=== PATIENT | female | born 1950 | race Caucasian/White ===

== ENCOUNTER 2017-04-12 21:36 | Inpatient (IN) | payer BC ==
--- NOTE | 2017-04-12 22:12 | EDM.PDOC ---
ED HPI GENERAL MEDICAL PROBLEM - General Chief Complaint: Abdominal Pain Stated Complaint: ABDOMINAL PAIN VOMITING Time Seen by Provider: 04/12/17 22:10 Source of Information: Reports: Patient History Limitations: Reports: No Limitations - History of Present Illness INITIAL COMMENTS - FREE TEXT/NARRATIVE: 67-year-old female presents to the ED with complaints of diffuse lower abdominal pain with strong colicky component. She states symptoms were mildly apparent when she got up this morning and have worsened as the day has gone on. She had some concerns that she may have contracted food poisoning as she was eating out the last few days. She did a [employer] restaurant last night and had an omelette earlier this morning after scientology. As the day has gone on she is developed increasing lower abdominal pain that radiates slightly into her lower back. She states there is a colicky component to the pain which makes her nauseated and vomit. She's vomited bilious emesis 3. She feels the need to defecate but has no had no luck in terms of getting her bowels to work. She has been sitting on the toilet voiding intermittently as well to try and relieve the lower abdominal pain. Previous surgery of the abdomen is total bili hysterectomy with retention of the ovaries. She has had a total knee replacement. It hurts to walk. She also felt tingling in the car caused increased lower abdominal pain as well. Onset: Today Onset Date: 04/12/17 Onset Time: 10:00 Duration: Hour(s): Location: Reports: Abdomen (Pain is all infraumbilical felt mostly suprapubic and right lower quadrant. It hurts to walk) Quality: Reports: Ache, Sharp, Stabbing, Other (Strong intermittent colicky pain but otherwise pain is constant suprapubically and right lower quadrant of the abdomen.) Severity: Moderate Improves with: Reports: Rest Worsens with: Reports: Movement Context: Denies: Activity, Exercise, Lifting, Sick Contact, Trauma, Other Associated Symptoms: Reports: Fever/Chills, Loss of Appetite, Malaise, Nausea/ Vomiting (Has vomited bilious emesis 3.), Other (Bowels have not work today but were normal yesterday.). Denies: No Other Symptoms, Confusion, Chest Pain, Cough, cough w sputum, Diaphoresis, Headaches (Has had some chills not aware of any fever per se), Rash, Seizure, Shortness of Breath Treatments WEB MARKETING ANALYST: Reports: Other (see below) Other Treatments WEB MARKETING ANALYST: kaveh sseltzer relief Lower Abdomen Pain Score (Numeric/FACES): 10 - Related Data Allergies Allergy/AdvReac Type Severity Reaction Status Date / Time No Known Allergies Allergy Verified 04/12/17 21:59 Home Meds: Home Meds Aspirin [Halfprin] 81 mg PO BEDTIME 04/12/17 [History] atorvaSTATin [Lipitor] 0 mg PO DAILY 04/12/17 [History] Past Medical History Cardiovascular History: Reports: High Cholesterol - Past Surgical History Female Surgical History: Reports: Hysterectomy Musculoskeletal Surgical History: Reports: Knee Replacement Other Musculoskeletal Surgeries/Procedures:: left and right Social & Family History - Tobacco Use Smoking Status *Q: Never Smoker - Caffeine Use Caffeine Use: Reports: Coffee - Recreational Drug Use Recreational Drug Use: No - Living Situation & Occupation Living situation: Reports: Occupation: Employed ED ROS GENERAL - Review of Systems Review Of Systems: See Below Constitutional: Reports: Weakness, Decreased Appetite. Denies: Fever, Chills, Malaise, Fatigue, Weight Loss HEENT: Reports: No Symptoms Respiratory: Reports: No Symptoms Cardiovascular: Reports: No Symptoms Endocrine: Reports: No Symptoms GI/Abdominal: Reports: Abdominal Pain (See history of present illness), Nausea, Vomiting (This evening.) : Reports: No Symptoms Musculoskeletal: Reports: Back Pain (Some mild low back pain which starts in this lower abdomen.) Skin: Reports: No Symptoms Neurological: Reports: No Symptoms Psychiatric: Reports: No Symptoms ED EXAM, GI/ABD - Physical Exam Exam: See Below Exam Limited By: No Limitations General Appearance: Alert, WD/WN, Moderate Distress, Other Eyes: Bilateral: Normal Appearance Throat/Mouth: Normal Inspection, Normal Lips, Normal Oropharynx, Other (Tongue is mildly dry.) Neck: Normal Inspection, Supple, Non-Tender, Full Range of Motion. No: Lymphadenopathy (L), Lymphadenopathy (R) Respiratory/Chest: Lungs Clear, Normal Breath Sounds, Chest Non-Tender, Respiratory Distress (Mild tachypnea) Cardiovascular: Normal Peripheral Pulses, Regular Rate, Rhythm, No Edema, No Gallop, No Murmur GI/Abdominal Exam: Normal Bowel Sounds, Guarding ( She has a positive Rovsing sign and obturator sign.), Rebound (Suprapubically and right lower quadrant.), Tender (Very tender to palpation suprapubically and right lower quadrant localized to McBurney's point.) Back Exam: Normal Inspection, Full Range of Motion. No: CVA Tenderness (L), CVA Tenderness (R) Extremities: Normal Inspection, Normal Range of Motion, Non-Tender, No Pedal Edema Neurological: Alert, Oriented, CN II-XII Intact, Normal Cognition Psychiatric: Normal Affect, Normal Mood Skin Exam: Warm, Dry, Intact, Pallor (Mild pallor thompson in color. Appears ill.) EKG INTERPRETATION EKG Date: 04/12/17 Time: 23:35 Rhythm: NSR Rate (Beats/Min): 70 [place]: LAD-Left [place] Deviation (-44) P-Wave: Present QRS: Other (RSR prime in V1 normal variant. There are Q waves however in lead 3 and aVF consider possible old inferior wall myocardial infarction) ST-T: Normal QT: Prolonged (QT is moderately prolonged.) EKG Interpretation Comments: Abnormal ECG Course - Vital Signs Last Recorded V/S: Last Vital Signs Temp 36.2 C 04/12/17 21:54 Pulse 69 04/13/17 00:46 Resp 20 04/13/17 01:14 BP 132/82 04/13/17 00:46 Pulse Ox 100 04/13/17 01:14 - Orders/Labs/Meds Orders: Active Orders 24 hr Category Date Time Status EKG Documentation Completion [RC] STAT Care 04/12/17 22:57 Active Verify Patient Consent Obtain [RC] ASDIRECTED Care 04/13/17 00:38 Active Abdomen 1V Flat [CR] Stat Exams 04/12/17 22:11 Taken Abdomen Pelvis wo Cont [CT] Stat Exams 04/12/17 22:51 Taken Chest 1V Frontal [CR] Stat Exams 04/12/17 22:56 Taken Sodium Chloride 0.9% [Normal Saline] 1,000 ml Med 04/12/17 22:15 Active IV ASDIRECTED NG [Nasogastric Orogastric Tube Insertion] [OM.PC] Oth 04/13/17 00:40 Ordered Routine Schedule Procedure [COMM] Urgent Oth 04/13/17 00:39 Ordered Medication Orders Sodium Chloride (Normal Saline) 1,000 mls @ 200 mls/hr IV ASDIRECTED WALLY Last Admin: 04/12/17 22:28 Dose: 200 mls/hr Labs: Laboratory Tests 04/12/17 04/12/17 04/12/17 Range/Units 22:11 22:28 22:28 WBC 12.58 H (3.98-10.04) K/mm3 RBC 5.22 (3.98-5.22) M/mm3 Hgb 14.7 (11.2-15.7) gm/L Hct 44.6 (34.1-44.9) % MCV 85.4 (79.4-94.8) fl MCH 28.2 (25.6-32.2) pg MCHC 33.0 (32.2-35.5) g/dl RDW Std Deviation 45.6 (36.4-46.3) fL Plt Count 225 (182-369) K/mm3 MPV 10.2 (9.4-12.3) fl Neutrophils % (Manual) 91 H (40-60) % Band Neutrophils % 0 (0-10) % Lymphocytes % (Manual) 5 L (20-40) % Atypical Lymphs % 0 % Monocytes % (Manual) 4 (2-10) % Eosinophils % (Manual) 0 L (0.7-5.8) % Basophils % (Manual) 0 L (0.1-1.2) Platelet Estimate Adequate Plt Morphology Comment Normal RBC Morph Comment Normal Sodium 136 (136-145) mEq/L Potassium 3.4 L (3.5-5.1) mEq/L Chloride 97 L (98-107) mEq/L Carbon Dioxide 24 (21-32) mEq/L Anion Gap 18.4 H (5-15) BUN 9 (7-18) mg/dL Creatinine 0.7 (0.55-1.02) mg/dL Est Cr Clr Drug Dosing 69.19 mL/min Estimated GFR (MDRD) > 60 (>60) mL/min BUN/Creatinine Ratio 12.9 L (14-18) Glucose 182 H (80-115) mg/dL Lactic Acid (0.4-2.0) mmol/L Calcium 9.5 (8.5-10.1) mg/dL Total Bilirubin 0.7 (0.2-1.0) mg/dL AST 17 (15-37) U/L ALT 30 (14-59) U/L Alkaline Phosphatase 62 (46-116) U/L C-Reactive Protein 2.2 H* (<1.0) mg/dL Total Protein 8.1 (6.4-8.2) g/dl Albumin 4.1 (3.4-5.0) g/dl Globulin 4.0 gm/dL Albumin/Globulin Ratio 1.0 (1-2) Amylase 35 (25-115) U/L Urine Color Yellow (Yellow) Urine Appearance Clear (Clear) Urine pH 6.0 (5.0-8.0) Ur Specific [place] 1.025 (1.005-1.030) Urine Protein Trace H (Negative) Urine Glucose (UA) Negative (Negative) Urine Ketones 3+ H (Negative) Urine Occult Blood Negative (Negative) Urine Nitrite Negative (Negative) Urine Bilirubin Negative (Negative) Urine Urobilinogen 0.2 (0.2-1.0) Ur Leukocyte Esterase Trace H (Negative) Urine RBC 0-5 (0-5) /hpf Urine WBC 0-5 (0-5) /hpf Ur Epithelial Cells 0-5 (0-5) /hpf Urine Bacteria Few (FEW) /hpf Hyaline Casts 0-5 (0-5) /lpf Urine Mucus Moderate H (FEW) /hpf 04/13/17 Range/Units 00:20 WBC (3.98-10.04) K/mm3 RBC (3.98-5.22) M/mm3 Hgb (11.2-15.7) gm/L Hct (34.1-44.9) % MCV (79.4-94.8) fl MCH (25.6-32.2) pg MCHC (32.2-35.5) g/dl RDW Std Deviation (36.4-46.3) fL Plt Count (182-369) K/mm3 MPV (9.4-12.3) fl Neutrophils % (Manual) (40-60) % Band Neutrophils % (0-10) % Lymphocytes % (Manual) (20-40) % Atypical Lymphs % % Monocytes % (Manual) (2-10) % Eosinophils % (Manual) (0.7-5.8) % Basophils % (Manual) (0.1-1.2) Platelet Estimate Plt Morphology Comment RBC Morph Comment Sodium (136-145) mEq/L Potassium (3.5-5.1) mEq/L Chloride (98-107) mEq/L Carbon Dioxide (21-32) mEq/L Anion Gap (5-15) BUN (7-18) mg/dL Creatinine (0.55-1.02) mg/dL Est Cr Clr Drug Dosing mL/min Estimated GFR (MDRD) (>60) mL/min BUN/Creatinine Ratio (14-18) Glucose (80-115) mg/dL Lactic Acid 1.2 (0.4-2.0) mmol/L Calcium (8.5-10.1) mg/dL Total Bilirubin (0.2-1.0) mg/dL AST (15-37) U/L ALT (14-59) U/L Alkaline Phosphatase (46-116) U/L C-Reactive Protein (<1.0) mg/dL Total Protein (6.4-8.2) g/dl Albumin (3.4-5.0) g/dl Globulin gm/dL Albumin/Globulin Ratio (1-2) Amylase (25-115) U/L Urine Color (Yellow) Urine Appearance (Clear) Urine pH (5.0-8.0) Ur Specific [place] (1.005-1.030) Urine Protein (Negative) Urine Glucose (UA) (Negative) Urine Ketones (Negative) Urine Occult Blood (Negative) Urine Nitrite (Negative) Urine Bilirubin (Negative) Urine Urobilinogen (0.2-1.0) Ur Leukocyte Esterase (Negative) Urine RBC (0-5) /hpf Urine WBC (0-5) /hpf Ur Epithelial Cells (0-5) /hpf Urine Bacteria (FEW) /hpf Hyaline Casts (0-5) /lpf Urine Mucus (FEW) /hpf Meds: Medications Generic Name Dose Route Start Last Admin Trade Name Freq PRN Reason Stop Dose Admin Sodium Chloride 1,000 mls @ 200 mls/hr 04/12/17 22:15 04/12/17 22:28 Normal Saline IV 200 mls/hr ASDIRECTED WALLY Administration Discontinued Medications Generic Name Dose Route Start Last Admin Trade Name Freq PRN Reason Stop Dose Admin Cefazolin Sodium Confirm 04/13/17 01:34 Ancef Administered 04/13/17 01:35 Dose 2 gm .ROUTE .STK-MED ONE Fentanyl Confirm 04/13/17 01:35 Sublimaze Administered 04/13/17 01:36 Dose 250 mcg .ROUTE .STK-MED ONE Hydromorphone HCl 1 mg 04/12/17 22:45 Dilaudid IVPUSH 04/12/17 22:46 ONETIME ONE Hydromorphone HCl 1 mg 04/12/17 22:58 04/12/17 23:03 Dilaudid IVPUSH 04/12/17 22:59 1 mg ONETIME ONE Administration Hydromorphone HCl 0.5 mg 04/13/17 00:26 04/13/17 00:45 Dilaudid IVPUSH 04/13/17 00:27 0.5 mg ONETIME ONE Administration Lactated Ringer's Confirm 04/13/17 01:34 Ringers, Lactated Administered 04/13/17 01:35 Dose 1,000 mls @ as directed .ROUTE .STK-MED ONE Lidocaine HCl Confirm 04/13/17 01:35 Xylocaine-Mpf 1% Administered 04/13/17 01:36 Dose 4 mls @ as directed .ROUTE .STK-MED ONE Metoclopramide HCl 10 mg 04/12/17 22:45 04/12/17 23:03 Reglan IVPUSH 04/12/17 22:46 10 mg ONETIME ONE Administration Midazolam HCl Confirm 04/13/17 01:35 Versed 1 Mg/Ml Administered 04/13/17 01:36 Dose 2 mg .ROUTE .STK-MED ONE Ondansetron HCl Confirm 04/13/17 01:34 Zofran Administered 04/13/17 01:35 Dose 4 mg .ROUTE .STK-MED ONE Propofol Confirm 04/13/17 01:35 Diprivan 20 Ml Administered 04/13/17 01:36 Dose 400 mg .ROUTE .STK-MED ONE Rocuronium [place] Confirm 04/13/17 01:34 Zemuron Administered 04/13/17 01:35 Dose 50 mg .ROUTE .STK-MED ONE Succinylcholine Chloride Confirm 04/13/17 01:34 Succinylcholine In Ns Pf Administered 04/13/17 01:35 Dose 100 mg .ROUTE .STK-MED ONE - Radiology Interpretation Free Text/Narrative:: 67-year-old female presents the ED with gradually worsening lower abdominal pain over the last 12-14 hours. She will with some mild lower abdominal discomfort early this morning but did manage to eat some breakfast after scientology. Since that time she's had increasing lower abdominal pain all infraumbilical. This evening the pain is become more intense and it with a colicky component. Vagina sharp stabbing pain, she vomits and has had bilious emesis 4. She has not had a bowel movement today but feels lower abdominal and rectal pressure discomfort. Has had some chills but no definitive fever. Examination reveals peritonitis with an acute abdomen particularly suprapubically and right lower quadrant highly suggestive of appendicitis. Plan routine labs urinalysis ECG and chest x-ray to be done one view of the abdomen will be done. Since she is vomiting so much she is unlikely they'll keep down oral contrast. We will have CT of the abdomen and pelvis performed without contrast - Re-Assessments/Exams Free Text/Narrative Re-Assessment/Exam: 04/13/17 00:08 White count is 12.58 with a left shift of 91% neutrophils and no bands. Hemoglobin is 14.7 with hematocrit of 44.6. Sodium is 136 with a potassium slightly low at 3.4. Chloride is 97 with a bicarbonate of 24. Anion gap is elevated at 18.4. BUN is 9 with a creatinine of 0.7. Glucose is elevated at 182.. Calcium is 9.5 with a total bilirubin of 0.7. AST is 17 with an ALT of 30. Alk phosphatase is 62. C-reactive protein is 2.2. Amylase is normal at 35. Serum ketones are elevated in the urine at 3+. No signs of urinary tract infection. CT of the abdomen and pelvis is back. It reveals numerous dilated loops of small bowel in the lower abdomen compatible with a bowel obstruction. Transition point appears to be in the mid to left lower quadrant of the abdomen. There is free intraperitoneal fluid as well up around the liver. Patient reports her pain is much improved after the Dilaudid. No further vomiting after the Reglan IV. Will discuss case with groundwater consultant surgeon. 04/13/17 00:28 patient is having more crampy colicky pain again. Will give Dilaudid 0.5 mg IV. I have spoken with Dr. Salgado groundwater consultant surgeon and he will attend the patient in the ED. of note his chest x-rays within normal limits. Lactic acid came back at 1.2. 04/13/17 01:30 patient is being prepped for the OR at this time. Departure - Departure Time of Disposition: 01:30 Disposition: DC/Tfer to [facility] Condition: Fair Clinical Impression: Small bowel obstruction due to postoperative adhesions - Discharge Information Referrals: Peggy Godoy MD [Primary Care Provider] - Forms: ED Department Discharge - My Orders Last 24 Hours: My Active Orders 04/12/17 22:11 Abdomen 1V Flat [CR] Stat 04/12/17 22:15 Sodium Chloride 0.9% [Normal Saline] 1,000 ml IV ASDIRECTED 04/12/17 22:51 Abdomen Pelvis wo Cont [CT] Stat 04/12/17 22:56 Chest 1V Frontal [CR] Stat 04/12/17 22:57 EKG Documentation Completion [RC] STAT - Assessment/Plan Last 24 Hours: My Active Orders 04/12/17 22:11 Abdomen 1V Flat [CR] Stat 04/12/17 22:15 Sodium Chloride 0.9% [Normal Saline] 1,000 ml IV ASDIRECTED 04/12/17 22:51 Abdomen Pelvis wo Cont [CT] Stat 04/12/17 22:56 Chest 1V Frontal [CR] Stat 04/12/17 22:57 EKG Documentation Completion [RC] STAT
[2017-04-12] MEDS ORDERED: Sodium Chloride 0.9% 1,000 ML IV SCH (22:15)
[2017-04-12] MEDS ORDERED: HYDROmorphone 1 MG/ML Syringe IVPUSH ONE (22:45)
[2017-04-12] MEDS ORDERED: Metoclopramide 10 MG/2 ML SDV IVPUSH ONE (22:45)
[2017-04-12] MEDS ORDERED: HYDROmorphone 0.5 MG/0.5 ML SYRINGE IVPUSH ONE (22:58)
[2017-04-13] MEDS ORDERED: HYDROmorphone 0.5 MG/0.5 ML SYRINGE IVPUSH ONE (00:26)
--- NOTE | 2017-04-13 00:56 | PCM.PREANE ---
Preanesthetic Assessment - Procedure Proposed Procedure: Laparotomy - Anesthesia/Transfusion/Family Hx Anesthesia History: Prior Anesthesia Reaction Type of Anesthesia Reaction: Excessive Nausea/Vomiting Family History of Anesthesia Reaction: No Transfusion History: No Prior Transfusion(s) - Review of Systems General: Weakness, Fatigue, Malaise, Chills, Appetite Pulmonary: No Symptoms Cardiovascular: No Symptoms Gastrointestinal: Abdominal Pain, Constipation, Nausea, Vomiting Neurological: No Symptoms Other: Reports: Easy Bruising - Physical Assessment NPO Status Date: 04/12/17 NPO Status Time: 23:00 O2 Sat by Pulse Oximetry: 100 Respiratory Rate: 20 Vital Signs: Last Vital Signs Temp 36.2 C 04/12/17 21:54 Pulse 66 04/12/17 21:54 Resp 20 04/12/17 21:54 BP 175/84 H 04/12/17 21:54 Pulse Ox 100 04/12/17 21:54 Height: 1.63 m Weight: 75.296 kg ASA Class: 2 Mental Status: Alert & Oriented x3 Airway Class: Mallampati = 2 Dentition: Reports: Bridge (Removable upper.) Thyro-Mental Finger Breadths: 2 Mouth Opening Finger Breadths: 3 ROM/Head Extension: Full Lungs: Clear to Auscultation, Normal Respiratory Effort Cardiovascular: Regular Rate, Regular Rhythm - Lab Values: Laboratory Last Values WBC 12.58 K/mm3 (3.98-10.04) H 04/12/17 22: RBC 5.22 M/mm3 (3.98-5.22) 04/12/17 22:28 Hgb 14.7 gm/L (11.2-15.7) 04/12/17 22: Hct 44.6 % (34.1-44.9) 04/12/17 22:28 MCV 85.4 fl (79.4-94.8) 04/12/17 22: MCH 28.2 pg (25.6-32.2) 04/12/17 22: MCHC 33.0 g/dl (32.2-35.5) 04/12/17 22:28 RDW Std Deviation 45.6 fL (36.4-46.3) 04/12/17 22: Plt Count 225 K/mm3 (182-369) 04/12/17 22: MPV 10.2 fl (9.4-12.3) 04/12/17 22: Neutrophils % (Manual) 91 % (40-60) H 04/12/17 22: Band Neutrophils % 0 % (0-10) 04/12/17: Lymphocytes % (Manual) 5 % (20-40) L 04/12/17 22: Atypical Lymphs % 0 % 04/12/17: Monocytes % (Manual) 4 % (2-10) 04/12/17: Eosinophils % (Manual) 0 % (0.7-5.8) L 04/12/17 22: Basophils % (Manual) 0 (0.1-1.2) L 04/12/17: Platelet Estimate Adequate 04/12/17: Plt Morphology Comment Normal 04/12/17: RBC Morph Comment Normal 04/12/17: Sodium 136 mEq/L (136-145) 04/12/17: Potassium 3.4 mEq/L (3.5-5.1) L 04/12/17: Chloride 97 mEq/L (98-107) L 04/12/17: Carbon Dioxide 24 mEq/L (21-32) 04/12/17: Anion Gap 18.4 (5-15) H 04/12/17: BUN 9 mg/dL (7-18) 04/12/17: Creatinine 0.7 mg/dL (0.55-1.02) 04/12/17: Est Cr Clr Drug Dosing 69.19 mL/min 04/12/17 22: Estimated GFR (MDRD) > 60 mL/min (>60) 04/12/17 22: BUN/Creatinine Ratio 12.9 (14-18) L 04/12/17: Glucose 182 mg/dL (80-115) H 04/12/17: Calcium 9.5 mg/dL (8.5-10.1) 04/12/17: Total Bilirubin 0.7 mg/dL (0.2-1.0) 04/12/17 22: AST 17 U/L (15-37) 04/12/17: ALT 30 U/L (14-59) 04/12/17: Alkaline Phosphatase 62 U/L (46-116) 04/12/17 22: C-Reactive Protein 2.2 mg/dL (<1.0) H* 04/12/17 22: Total Protein 8.1 g/dl (6.4-8.2) 04/12/17 22: Albumin 4.1 g/dl (3.4-5.0) 04/12/17: Globulin 4.0 gm/dL 04/12/17: Albumin/Globulin Ratio 1.0 (1-2) 04/12/17: Amylase 35 U/L (25-115) 04/12/17 22: Urine Color Yellow (Yellow) 04/12/17 22: Urine Appearance Clear (Clear) 04/12/17: Urine pH 6.0 (5.0-8.0) 04/12/17 22: Ur Specific [place] 1.025 (1.005-1.030) 04/12/17 22:11 Urine Protein Trace (Negative) H 04/12/17 22:11 Urine Glucose (UA) Negative (Negative) 04/12/17 22:11 Urine Ketones 3+ (Negative) H 04/12/17 22:11 Urine Occult Blood Negative (Negative) 04/12/17: Urine Nitrite Negative (Negative) 04/12/17: Urine Bilirubin Negative (Negative) 04/12/17 22: Urine Urobilinogen 0.2 (0.2-1.0) 04/12/17 22:11 Ur Leukocyte Esterase Trace (Negative) H 04/12/17 22:11 Urine RBC 0-5 /hpf (0-5) 04/12/17 22:11 Urine WBC 0-5 /hpf (0-5) 04/12/17 22:11 Ur Epithelial Cells 0-5 /hpf (0-5) 04/12/17 22:11 Urine Bacteria Few /hpf (FEW) 04/12/17: Hyaline Casts 0-5 /lpf (0-5) 04/12/17 22:11 Urine Mucus Moderate /hpf (FEW) H 04/12/17 22:11 - Imaging/EKG Impressions: Reviewed SR 70bpm, old inferior infarct. - Allergies Allergies/Adverse Reactions: Allergies Allergy/AdvReac Type Severity Reaction Status Date / Time No Known Allergies Allergy Verified 04/12/17 21:59 - Acknowledgements Anesthesia Type Planned: General Anesthesia Pt an Appropriate Candidate for the Planned Anesthesia: Yes Alternatives and Risks of Anesthesia Discussed w Pt/Guardian: Yes Pt/Guardian Understands and Agrees with Anesthesia Plan: Yes PreAnesthesia Questionnaire Cardiovascular History: Reports: High Cholesterol - Past Surgical History Female Surgical History: Reports: Hysterectomy Musculoskeletal Surgical History: Reports: Knee Replacement Other Musculoskeletal Surgeries/Procedures:: left and right - SUBSTANCE USE Smoking Status *Q: Never Smoker Recreational Drug Use History: No - HOME MEDS Home Medications: Home Meds Aspirin [Halfprin] 81 mg PO BEDTIME 04/12/17 [History] atorvaSTATin [Lipitor] 0 mg PO DAILY 04/12/17 [History] - CURRENT (IN HOUSE) MEDS Current Meds: Current Medications Sodium Chloride (Normal Saline) 1,000 mls @ 200 mls/hr IV ASDIRECTED [facility] Last Admin: 04/12/17 22:28 Dose: 200 mls/hr Discontinued Medications Hydromorphone HCl (Dilaudid) 1 mg IVPUSH ONETIME ONE Stop: 04/12/17 22:46 Hydromorphone HCl (Dilaudid) 1 mg IVPUSH ONETIME ONE Stop: 04/12/17 22:59 Last Admin: 04/12/17 23:03 Dose: 1 mg Hydromorphone HCl (Dilaudid) 0.5 mg IVPUSH ONETIME ONE Stop: 04/13/17 00:27 Last Admin: 04/13/17 00:45 Dose: 0.5 mg Metoclopramide HCl (Reglan) 10 mg IVPUSH ONETIME ONE Stop: 04/12/17 22:46 Last Admin: 04/12/17 23:03 Dose: 10 mg
[2017-04-13] MEDS ORDERED: Bupivacaine 0.25% 30 ML SDV ONE (01:17)
[2017-04-13] MEDS ORDERED: ceFAZolin 1 GM Vial ONE (01:34)
[2017-04-13] MEDS ORDERED: Ondansetron 4 MG/2 ML SDV ONE (01:34)
[2017-04-13] MEDS ORDERED: Succinylcholine/Normal Saline 100 MG/5 ML Syringe ONE (01:34)
[2017-04-13] MEDS ORDERED: Lactated Ringers 1,000 ML ONE ×2 (01:34→03:12)
[2017-04-13] MEDS ORDERED: Rocuronium 50 MG/5 ML Vial ONE (01:34)
[2017-04-13] MEDS ORDERED: Midazolam 1 MG/ML 2 ML SDV ONE (01:35)
[2017-04-13] MEDS ORDERED: Propofol 200 MG/20 ML SDV ONE (01:35)
[2017-04-13] MEDS ORDERED: fentaNYL 250 MCG/5 ML SDV ONE (01:35)
[2017-04-13] MEDS ORDERED: Lidocaine 1% 4 ML ONE (01:35)
[2017-04-13] MEDS ORDERED: ePHEDrine 50 MG/ML SDV IVPUSH PRN (02:33)
[2017-04-13] MEDS ORDERED: HYDROmorphone 0.5 MG/0.5 ML SYRINGE IV PRN (02:33)
[2017-04-13] MEDS ORDERED: Haloperidol Lactate 5 MG/ML SDV IVPUSH ONE (02:33)
[2017-04-13] MEDS ORDERED: Meperidine PF 50 MG/ML Syringe IVPUSH PRN (02:33)
[2017-04-13] MEDS ORDERED: diphenhydrAMINE 50 MG/ML SDV IVPUSH PRN (02:33)
[2017-04-13] MEDS ORDERED: HYDROmorphone 1 MG/ML Syringe ONE (02:40)
[2017-04-13] MEDS ORDERED: Neostigmine Methylsulfate 1 MG/ML 5 ML Syringe ONE (03:12)
[2017-04-13] MEDS ORDERED: Dexamethasone 4 MG/ML 5 ML MDV ONE (03:12)
[2017-04-13] MEDS ORDERED: Lactated Ringers 1,000 ML IV SCH ×3 (03:30→08:50)
[2017-04-13] MEDS ORDERED: Ondansetron 4 MG/2 ML SDV IVPUSH PRN (03:31)
--- NOTE | 2017-04-13 03:31 | PCM.POSTAN ---
POST ANESTHESIA ASSESSMENT - MENTAL STATUS Mental Status: Alert, Oriented - VITAL SIGNS Pulse Rate: 88 SaO2: 100 Resp Rate: 16 Blood Pressure: 119/70 Temperature: 37.7 C - RESPIRATORY Respiratory Status: Respiratory Rate WNL, Airway Patent, O2 Saturation Stable, Supplemental Oxygen - CARDIOVASCULAR CV Status: Pulse Rate WNL, Blood Pressure Stable - GASTROINTESTINAL GI Status: No Symptoms - PAIN Pain Score: 0 - POST OP HYDRATION Hydration Status: Adequate & Stable
--- NOTE | 2017-04-13 03:37 | PCM.OPNOTE ---
- General Post-Op/Procedure Note Date of Surgery/Procedure: 04/13/17 Operative Procedure(s): laproscopy/laprotomy lysis of adhesions Pre Op Diagnosis: closed loop SBO Post-Op Diagnosis: Same Anesthesia Technique: General ET Tube Primary Surgeon: Quincy Salgado EBL in mLs: 10 Complications: None Condition: Good
[2017-04-13] MEDS: fentaNYL 100 MCG/2 ML SDV IVPUSH PRN ×2 (03:54→04:15)
[2017-04-13] MEDS ORDERED: Pneumococcal Polyvalent-23 Vaccine 0.5 ML SDV IM ONE (05:21)
--- NOTE | 2017-04-13 07:42 | HP ---
DATE OF ADMISSION: 04/13/2017 HISTORY OF PRESENT ILLNESS: This is a 67-year-old who came into the emergency room with colicky lower abdominal pain. The pain began after about noon time. She thought she might have food poisoning. It just persisted as a crampy pain, quite severe, that would come and go. There were 3 episodes of vomiting, bilious material, and inability to have flatus. She came into the ER and a CT scan was done, which was read as closed-loop obstruction. The patient has had a hysterectomy some 20 years ago. Appendix and ovaries, she feels, were left in. FAMILY HISTORY: Family with myocardial infarction. She personally had a sister who of cancer of the breasts, although, she has had a normal mammogram this year and colonoscopy. REVIEW OF SYSTEMS: No chest pain, shortness of breath, cough, hoarseness, wheezing, fainting, weakness, numbness, or convulsions. She does have some nausea and vomiting. She does have abdominal pain. PAST MEDICAL HISTORY: Elevated cholesterol. PAST SURGICAL HISTORY: Hysterectomy and knee replacement. SOCIAL HISTORY: No smoking. No drinking. ALLERGIES: No known allergies. CURRENT MEDICATIONS: Lipitor and aspirin. PHYSICAL EXAMINATION: VITAL SIGNS: Pulse 66 and blood pressure 175/84. EYES: Sclerae white. Extraocular muscle motion normal. ENT: Oral cavity, healthy mucous membrane with mouth and tongue. NECK: Supple. No nodes. No thyromegaly. Trachea midline. LUNGS: Clear. No rales, rhonchi, fremitus, or dullness. HEART: Heart tones regular rate. No S3, S4, jugular venous distention or murmurs. ABDOMEN: Shows guarding and tenderness in the right lower quadrant and some in the suprapubic area. Left part of the abdomen and upper abdomen were free of any pathology. No inguinal or ventral hernias. EXTREMITIES: Upper and lower extremities, no angulation deformities. No sensorineural deficits. SKIN: Warm and dry. NEUROLOGIC: Cranial nerves 3 through 12 intact. ASSESSMENT: Small bowel obstruction, high likelihood of a twist or adhesion, closed-loop. PLAN: Laparoscopy and laparotomy. Discussed the procedure, the risks, the complications, and length of stay. The patient understands and consents. MMODAL /[id number]
--- NOTE | 2017-04-13 07:44 | OR ---
DATE OF OPERATION: 04/13/2017 SURGEON: Quincy Salgado MD PREOPERATIVE DIAGNOSIS: Small bowel obstruction with closed-loop obstruction. POSTOPERATIVE DIAGNOSIS: Small bowel obstruction with closed-loop obstruction. OPERATION PERFORMED: Laparoscopy and laparotomy with lysis of adhesions, derotation of bowel, and evaluation of blood supply to the bowel with Doppler probe. FINDINGS: Obstruction of the bowel, closed loop, due to a rotation around an adhesion of the mid-jejunum and ileum, in which the blood supply of the bowel was compromised as demonstrated by some blood in the effluent and beefy red bowel. However, there was no evidence of necrosis. Doppler probe showed good flow in the marginal artery of the bowel. ESTIMATED BLOOD LOSS: About 10 mL. DESCRIPTION OF PROCEDURE: The patient was taken to the operating room, placed in a supine position, given a general anesthetic, and antibiotics were given. SCDs were placed. The abdomen was then prepped with chlorhexidine and alcohol, prepped and draped off in a sterile fashion. Incision was made just above the umbilicus and carried down to the fascia. The fascia was incised and abdominal cavity entered. Chava trocar was placed, secured with sutures, and pneumoperitoneum established. Then, a 5-mm 0-degree camera was inserted showing compromised bowel. It was elected to open the bowel so that the bowel could be properly evaluated for ischemia. The pneumoperitoneum was removed, and the fascia was then closed with 0 Vicryl suture, and the skin with subdermal 4-0 Dexon suture with tension. Once the instrument counts were correct, preparation was made for laparotomy. An incision was made in the lower abdomen from just above the pubic bone to just below the umbilicus, carried down through the skin and through the subcuticular tissue to the fascia, which was incised in the midline. Abdominal cavity was then entered carefully. The bowel was then evaluated and derotated. An adhesion had caused the rotational problem of bowel. It was beefy red, but no necrosis. The adhesion was then cut and other adhesions of the omentum were cut. The bowel was then brought out through the incision and using a Doppler probe, the marginal artery flow was confirmed. There was no necrosis on the antimesenteric border. The bowel was placed in the abdominal cavity. The area was irrigated, and the fascia was then closed after lap and instrument counts were correct. The closure was accomplished starting with #1 PDS on either end and meeting in the midline and tying off. Subcuticular tissue was irrigated. The dermis was brought together in an interrupted 3-0 Vicryl suture, and the skin with valdemar. Sterile dressing placed. The patient tolerated the procedure and sent to recovery room in a stable condition. ANESTHESIA: MMODAL /[id number]
--- NOTE | 2017-04-13 08:04 | CT ---
CT abdomen and pelvis Technique: Multiple axial sections were obtained from above the dome of the diaphragm inferiorly through the pubic symphysis. Intravenous and oral contrast has not been given. Lack of contrast diminishes some details of the study. Comparison: No prior CT exam is available. Findings: Dilated fluid-filled small bowel loops are seen. Transition point appears to be within the left lower abdomen. Mild associated inflammatory change is seen in this area within the mesentery. Findings compatible with small bowel obstruction with etiology not determined on this exam. Diffuse diverticulosis is seen within the descending and sigmoid colons. Visualized lung bases show nothing acute. Noncontrast appearance of the liver measuring 1 cm which is compatible with a cyst. No additional abnormality is seen within the liver. Spleen appears within normal limits. Mild ascites is identified around the liver as well as a small amount of free fluid within the pelvis. Pancreas appears within normal limits. Kidneys show no abnormal calcifications or soft tissue abnormality. Bony structures show degenerative change throughout the spine with mild scoliosis. Aorta shows no aneurysmal dilatation. No retroperitoneal adenopathy is seen. Appendix is seen which is normal in size. No pelvic mass or adenopathy is seen. Gallbladder contains no calcified gallstones. Impression: 1. Dilated fluid-filled small bowel with transition point within the left lower abdomen. Findings are felt compatible with small bowel obstruction, etiology is not seen on this exam. Some inflammatory-type change is felt to be present within the mesentery at the level of obstruction. 2. Mild amount of ascites. 3. Other incidental findings. Diagnostic code #5 Agree with preliminary report issued by [facility] ([facility] preliminary report dictated on 04/13/17, 1:04 AM Central Time)
--- NOTE | 2017-04-13 08:04 | CR ---
Chest: Portable view of the chest was obtained. Comparison: Previous chest x-ray of 07/27/12. Heart is enlarged. Mild scarring seen off the left lung apex slightly more prominent than on previous study. Lungs otherwise are clear. Mild degenerative endplate spurring noted within the spine. Bony structures are osteopenic. Impression: 1. Cardiomegaly. Mild scarring as noted above. 2. Nothing acute is seen on frontal chest x-ray. Diagnostic code #2
--- NOTE | 2017-04-13 08:04 | CR ---
Abdomen: Supine view of the abdomen was obtained. Comparison: No prior study. Bowel gas pattern appears normal. Multiple calcifications are seen within the pelvis likely due to phleboliths if patient does not have any obstructive ureteral symptoms. Bony structures are within normal limits for the patient's age. No soft tissue abnormality is appreciated. Impression: 1. Incidental findings. Diagnostic code #2
--- NOTE | 2017-04-13 09:33 | PCM.SURGPN ---
- General Info Date of Service: 04/13/17 Functional Status: Reports: Pain Controlled - Review of Systems Pulmonary: Reports: No Symptoms Cardiovascular: Reports: No Symptoms Gastrointestinal: Reports: No Symptoms - Patient Data Vitals - Most Recent: Last Vital Signs Temp 98.2 F 04/13/17 05:30 Pulse 88 04/13/17 03:30 Resp 15 04/13/17 08:00 BP 99/61 04/13/17 08:00 Pulse Ox 96 04/13/17 08:00 Weight - Most Recent: 81.102 kg I&O - Last 24 Hours: Intake & Output 04/12/17 04/13/17 04/13/17 23:59 07:59 15:59 Output Total 325 Balance -325 Med Orders - Current: Current Medications Hydromorphone HCl (Dilaudid) 0.5 mg IVPUSH Q1H PRN PRN Reason: Pain Lactated Ringer's (Ringers, Lactated) 1,000 mls @ 75 mls/hr IV ASDIRECTED WALLY Meperidine HCl (Demerol) 12.5 mg IVPUSH ONETIME PRN PRN Reason: Shivering Ondansetron HCl (Zofran) 4 mg IVPUSH Q8H PRN PRN Reason: Nausea Discontinued Medications Bupivacaine HCl (Marcaine 0.25%) Confirm Administered Dose 30 ml .ROUTE .STK- MED ONE Stop: 04/13/17 01:18 Cefazolin Sodium (Ancef) Confirm Administered Dose 2 gm .ROUTE .STK-MED ONE Stop: 04/13/17 01:35 Dexamethasone (Dexamethasone) Confirm Administered Dose 20 mg .ROUTE .STK-MED ONE Stop: 04/13/17 03:13 Diphenhydramine HCl (Benadryl) 25 mg IVPUSH Q6H PRN PRN Reason: Pruritis Ephedrine Sulfate (Ephedrine Sulfate) 5 mg IVPUSH ASDIRECTED PRN PRN Reason: Hypotension Fentanyl (Sublimaze) Confirm Administered Dose 250 mcg .ROUTE .STK-MED ONE Stop: 04/13/17 01:36 Fentanyl (Sublimaze) 50 mcg IVPUSH Q5M PRN PRN Reason: Pain Last Admin: 04/13/17 04:15 Dose: 50 mcg Glycopyrrolate () Confirm Administered Dose 1 mg .ROUTE .STK-MED ONE Stop: 04/13/17 03:13 Haloperidol Lactate (Haldol) 1 mg IVPUSH ONETIME ONE Stop: 04/13/17 02:34 Last Admin: 04/13/17 05:41 Dose: Not Given Hydromorphone HCl (Dilaudid) 1 mg IVPUSH ONETIME ONE Stop: 04/12/17 22:46 Hydromorphone HCl (Dilaudid) 1 mg IVPUSH ONETIME ONE Stop: 04/12/17 22:59 Last Admin: 04/12/17 23:03 Dose: 1 mg Hydromorphone HCl (Dilaudid) 0.5 mg IVPUSH ONETIME ONE Stop: 04/13/17 00:27 Last Admin: 04/13/17 00:45 Dose: 0.5 mg Hydromorphone HCl (Dilaudid) Confirm Administered Dose 1 mg .ROUTE .STK-MED ONE Stop: 04/13/17 02:41 Hydromorphone HCl (Dilaudid) 0.5 mg IV ASDIRECTED PRN PRN Reason: Severe Pain Last Admin: 04/13/17 05:12 Dose: 0.5 mg Sodium Chloride (Normal Saline) 1,000 mls @ 200 mls/hr IV ASDIRECTED WALLY Last Admin: 04/12/17 22:28 Dose: 200 mls/hr Lactated Ringer's (Ringers, Lactated) Confirm Administered Dose 1,000 mls @ as directed .ROUTE .ST-MED ONE Stop: 04/13/17 01:35 Lidocaine HCl (Xylocaine-Mpf 1%) Confirm Administered Dose 4 mls @ as directed .ROUTE .ST-MED ONE Stop: 04/13/17 01:36 Lactated Ringer's (Ringers, Lactated) Confirm Administered Dose 1,000 mls @ as directed .ROUTE .STK-MED ONE Stop: 04/13/17 03:13 Lactated Ringer's (Ringers, Lactated) 1,000 mls @ 125 mls/hr IV ASDIRECTED [facility]ALLY Last Admin: 04/13/17 05:13 Dose: 125 mls/hr Metoclopramide HCl (Reglan) 10 mg IVPUSH ONETIME ONE Stop: 04/12/17 22:46 Last Admin: 04/12/17 23:03 Dose: 10 mg Midazolam HCl (Versed 1 Mg/Ml) Confirm Administered Dose 2 mg .ROUTE .STK-MED ONE Stop: 04/13/17 01:36 Neostigmine Methylsulfate (Neostigmine) Confirm Administered Dose 5 mg .ROUTE .STK-MED ONE Stop: 04/13/17 03:13 Ondansetron HCl (Zofran) Confirm Administered Dose 4 mg .ROUTE .STK-MED ONE Stop: 04/13/17 01:35 Pneumococcal Polyvalent Vaccine (Pneumovax 23) 0.5 ml IM .ONCE ONE Stop: 04/13/17 05:22 Propofol (Diprivan 20 Ml) Confirm Administered Dose 400 mg .ROUTE .STK-MED ONE Stop: 04/13/17 01:36 Rocuronium [place] (Zemuron) Confirm Administered Dose 50 mg .ROUTE .STK-MED ONE Stop: 04/13/17 01:35 Succinylcholine Chloride (Succinylcholine In Ns Pf) Confirm Administered Dose 100 mg .ROUTE .STK-MED ONE Stop: 04/13/17 01:35 - Exam Wound/Incisions: Healing Well General: Alert, Oriented Lungs: Clear to Auscultation, Normal Respiratory Effort GI/Abdominal Exam: Normal Bowel Sounds, Soft, Non-Tender, No Organomegaly, No Distention, No Abnormal Bruit, No Mass, Pelvis Stable - Problem List Review Problem List Initiated/Reviewed/Updated: Yes - My Orders Last 24 Hours: Active Orders 24 hr Category Date Time Status Lactated Ringers [Ringers, Lactated] 1,000 ml Med 04/13/17 08:45 Active IV ASDIRECTED Code Status [Resuscitation Status] Routine Resus Stat 04/13/17 05:47 Ordered Medication Orders Hydromorphone HCl (Dilaudid) 0.5 mg IVPUSH Q1H PRN PRN Reason: Pain Lactated Ringer's (Ringers, Lactated) 1,000 mls @ 75 mls/hr IV ASDIRECTED WALLY Meperidine HCl (Demerol) 12.5 mg IVPUSH ONETIME PRN PRN Reason: Shivering Ondansetron HCl (Zofran) 4 mg IVPUSH Q8H PRN PRN Reason: Nausea - Assessment Assessment (Free Text/Narrative):: pt s/p laprotomhy for SBo doing well good UO no abdmoninal cramps VS stable ass improved plan as per orders
[2017-04-13] MEDS: HYDROmorphone 0.5 MG/0.5 ML SYRINGE IVPUSH PRN ×3 (09:47→20:39)
--- NOTE | 2017-04-13 10:29 | PCM48HPAN ---
Post Anesthesia Note - EVALUATION WITHIN 48HRS OF ANESTHETIC Vital Signs in Normal Range: Yes Patient Participated in Evaluation: Yes Respiratory Function Stable: Yes Airway Patent: Yes Cardiovascular Function Stable: Yes Hydration Status Stable: Yes Pain Control Satisfactory: Yes Nausea and Vomiting Control Satisfactory: Yes Mental Status Recovered: Yes (sitting up in bed- ng intact) Pulse Rate: 88 Resp Rate: 15 Temperature: 99.8 F Blood Pressure: 119/70
[2017-04-13] MEDS: Benzocaine/Cetylpyridinium/Menthol Lozenge MUCMEM PRN ×3 (16:54→22:26)
[2017-04-13] MEDS: Lactated Ringers 1,000 ML IV SCH (16:55)
[2017-04-14] MEDS: Benzocaine/Cetylpyridinium/Menthol Lozenge MUCMEM PRN ×4 (01:47→14:06)
[2017-04-14] MEDS: HYDROmorphone 0.5 MG/0.5 ML SYRINGE IVPUSH PRN ×2 (04:23→07:47)
--- NOTE | 2017-04-14 10:15 | PCM.SURGPN ---
- General Info Date of Service: 04/14/17 POD#: 2 Functional Status: Reports: Pain Controlled - Review of Systems General: Reports: No Symptoms Cardiovascular: Reports: No Symptoms Gastrointestinal: Reports: No Symptoms - Patient Data Vitals - Most Recent: Last Vital Signs Temp 98.2 F 04/14/17 08:00 Pulse 82 04/14/17 08:00 Resp 17 04/14/17 08:00 BP 127/67 04/14/17 08:00 Pulse Ox 95 04/14/17 08:00 Weight - Most Recent: 78.018 kg I&O - Last 24 Hours: Intake & Output 04/13/17 04/14/17 04/14/17 23:59 07:59 15:59 Intake Total 1112 610 Output Total 1200 700 250 Balance -88 -90 -250 Lab Results Last 24 Hrs: Laboratory Results - last 24 hr 04/14/17 04/14/17 Range/Units 05:16 05:16 WBC 8.54 (3.98-10.04) K/mm3 RBC 3.92 L (3.98-5.22) M/mm3 Hgb 11.4 (11.2-15.7) gm/L Hct 34.5 (34.1-44.9) % MCV 88.0 (79.4-94.8) fl MCH 29.1 (25.6-32.2) pg MCHC 33.0 (32.2-35.5) g/dl RDW Std Deviation 47.9 H (36.4-46.3) fL Plt Count 193 (182-369) K/mm3 MPV 11.0 (9.4-12.3) fl Neut % (Auto) 69.3 (34.0-71.1) % Lymph % (Auto) 18.5 L (19.3-51.7) % [place] % (Auto) 11.0 (4.7-12.5) % Eos % (Auto) 0.6 L (0.7-5.8) Baso % (Auto) 0.5 (0.1-1.2) % Neut # (Auto) 5.92 (1.56-6.13) K/mm3 Lymph # (Auto) 1.58 (1.18-3.74) K/mm3 [place] # (Auto) 0.94 H (0.24-0.36) K/mm3 Eos # (Auto) 0.05 (0.04-0.36) K/mm3 Baso # (Auto) 0.04 (0.01-0.08) K/mm3 Sodium 142 (136-145) mEq/L Potassium 3.2 L (3.5-5.1) mEq/L Chloride 106 (98-107) mEq/L Carbon Dioxide 27 (21-32) mEq/L Anion Gap 12.2 (5-15) BUN 10 (7-18) mg/dL Creatinine 0.5 L (0.55-1.02) mg/dL Est Cr Clr Drug Dosing 96.86 mL/min Estimated GFR (MDRD) > 60 (>60) mL/min BUN/Creatinine Ratio 20.0 H (14-18) Glucose 91 (80-115) mg/dL Calcium 8.2 L (8.5-10.1) mg/dL Total Bilirubin 0.7 (0.2-1.0) mg/dL AST 14 L (15-37) U/L ALT 17 (14-59) U/L Alkaline Phosphatase 44 L (46-116) U/L Total Protein 6.0 L (6.4-8.2) g/dl Albumin 2.8 L (3.4-5.0) g/dl Globulin 3.2 gm/dL Albumin/Globulin Ratio 0.9 L (1-2) Med Orders - Current: Current Medications Benzocaine/Menthol (Cepacol Sore Throat) 1 lozenge MUCMEM Q2HR PRN PRN Reason: Sore Throat Last Admin: 04/14/17 07:47 Dose: 1 lozenge Hydromorphone HCl (Dilaudid) 0.5 mg IVPUSH Q1H PRN PRN Reason: Pain Last Admin: 04/14/17 07:47 Dose: 0.5 mg Lactated Ringer's (Ringers, Lactated) 1,000 mls @ 50 mls/hr IV ASDIRECTED WALLY Last Admin: 04/13/17 16:55 Dose: 50 mls/hr Meperidine HCl (Demerol) 12.5 mg IVPUSH ONETIME PRN PRN Reason: Shivering Ondansetron HCl (Zofran) 4 mg IVPUSH Q8H PRN PRN Reason: Nausea Discontinued Medications Bupivacaine HCl (Marcaine 0.25%) Confirm Administered Dose 30 ml .ROUTE .[facility]- MED ONE Stop: 04/13/17 01:18 Last Admin: 04/13/17 02:18 Dose: 3 ml Cefazolin Sodium (Ancef) Confirm Administered Dose 2 gm .ROUTE .STK-MED ONE Stop: 04/13/17 01:35 Dexamethasone (Dexamethasone) Confirm Administered Dose 20 mg .ROUTE .[facility]-MED ONE Stop: 04/13/17 03:13 Diphenhydramine HCl (Benadryl) 25 mg IVPUSH Q6H PRN PRN Reason: Pruritis Ephedrine Sulfate (Ephedrine Sulfate) 5 mg IVPUSH ASDIRECTED PRN PRN Reason: Hypotension Fentanyl (Sublimaze) Confirm Administered Dose 250 mcg .ROUTE .[facility]-MED ONE Stop: 04/13/17 01:36 Fentanyl (Sublimaze) 50 mcg IVPUSH Q5M PRN PRN Reason: Pain Last Admin: 04/13/17 04:15 Dose: 50 mcg Glycopyrrolate () Confirm Administered Dose 1 mg .ROUTE .[facility]-MED ONE Stop: 04/13/17 03:13 Haloperidol Lactate (Haldol) 1 mg IVPUSH ONETIME ONE Stop: 04/13/17 02:34 Last Admin: 04/13/17 05:41 Dose: Not Given Hydromorphone HCl (Dilaudid) 1 mg IVPUSH ONETIME ONE Stop: 04/12/17 22:46 Hydromorphone HCl (Dilaudid) 1 mg IVPUSH ONETIME ONE Stop: 04/12/17 22:59 Last Admin: 04/12/17 23:03 Dose: 1 mg Hydromorphone HCl (Dilaudid) 0.5 mg IVPUSH ONETIME ONE Stop: 04/13/17 00:27 Last Admin: 04/13/17 00:45 Dose: 0.5 mg Hydromorphone HCl (Dilaudid) Confirm Administered Dose 1 mg .ROUTE .ST-MED ONE Stop: 04/13/17 02:41 Hydromorphone HCl (Dilaudid) 0.5 mg IV ASDIRECTED PRN PRN Reason: Severe Pain Last Admin: 04/13/17 05:12 Dose: 0.5 mg Sodium Chloride (Normal Saline) 1,000 mls @ 200 mls/hr IV ASDIRECTED WALLY Last Admin: 04/12/17 22:28 Dose: 200 mls/hr Lactated Ringer's (Ringers, Lactated) Confirm Administered Dose 1,000 mls @ as directed .ROUTE .STK-MED ONE Stop: 04/13/17 01:35 Lidocaine HCl (Xylocaine-Mpf 1%) Confirm Administered Dose 4 mls @ as directed .ROUTE .STK-MED ONE Stop: 04/13/17 01:36 Lactated Ringer's (Ringers, Lactated) Confirm Administered Dose 1,000 mls @ as directed .ROUTE .STK-MED ONE Stop: 04/13/17 03:13 Lactated Ringer's (Ringers, Lactated) 1,000 mls @ 125 mls/hr IV ASDIRECTED WALLY Last Admin: 04/13/17 05:13 Dose: 125 mls/hr Lactated Ringer's (Ringers, Lactated) 1,000 mls @ 70 mls/hr IV ASDIRECTED [facility] Last Infusion: 04/13/17 16:44 Dose: 50 mls/hr Metoclopramide HCl (Reglan) 10 mg IVPUSH ONETIME ONE Stop: 04/12/17 22:46 Last Admin: 04/12/17 23:03 Dose: 10 mg Midazolam HCl (Versed 1 Mg/Ml) Confirm Administered Dose 2 mg .ROUTE .STK-MED ONE Stop: 04/13/17 01:36 Neostigmine Methylsulfate (Neostigmine) Confirm Administered Dose 5 mg .ROUTE .STK-MED ONE Stop: 04/13/17 03:13 Ondansetron HCl (Zofran) Confirm Administered Dose 4 mg .ROUTE .STK-MED ONE Stop: 04/13/17 01:35 Pneumococcal Polyvalent Vaccine (Pneumovax 23) 0.5 ml IM .ONCE ONE Stop: 04/13/17 05:22 Propofol (Diprivan 20 Ml) Confirm Administered Dose 400 mg .ROUTE .STK-MED ONE Stop: 04/13/17 01:36 Rocuronium [place] (Zemuron) Confirm Administered Dose 50 mg .ROUTE .STK-MED ONE Stop: 04/13/17 01:35 Succinylcholine Chloride (Succinylcholine In Ns Pf) Confirm Administered Dose 100 mg .ROUTE .STK-MED ONE Stop: 04/13/17 01:35 - Exam Wound/Incisions: Healing Well Lungs: Clear to Auscultation, Normal Respiratory Effort GI/Abdominal Exam: Normal Bowel Sounds, Soft, Non-Tender, No Organomegaly, No Distention, No Abnormal Bruit, No Mass, Pelvis Stable - Problem List Review Problem List Initiated/Reviewed/Updated: Yes - My Orders Last 24 Hours: Active Orders 24 hr Category Date Time Status Benzocaine/Cetylpyrd/Menthol [Cepacol Sore Throat] Med 04/13/17 16:43 Active 1 lozenge MUCMEM Q2HR PRN Lactated Ringers [Ringers, Lactated] 1,000 ml Med 04/13/17 16:45 Active IV ASDIRECTED Medication Orders Benzocaine/Menthol (Cepacol Sore Throat) 1 lozenge MUCMEM Q2HR PRN PRN Reason: Sore Throat Last Admin: 04/14/17 07:47 Dose: 1 lozenge Admin: 04/14/17 04:23 Dose: 1 lozenge Admin: 04/14/17 01:47 Dose: 1 lozenge Admin: 04/13/17 22:26 Dose: 1 lozenge Admin: 04/13/17 19:38 Dose: 1 lozenge Admin: 04/13/17 16:54 Dose: 1 lozenge Hydromorphone HCl (Dilaudid) 0.5 mg IVPUSH Q1H PRN PRN Reason: Pain Last Admin: 04/14/17 07:47 Dose: 0.5 mg Admin: 04/14/17 04:23 Dose: 0.5 mg Admin: 04/13/17 20:39 Dose: 0.5 mg Admin: 04/13/17 16:14 Dose: 0.5 mg Admin: 04/13/17 09:47 Dose: 0.5 mg Lactated Ringer's (Ringers, Lactated) 1,000 mls @ 50 mls/hr IV ASDIRECTED WALLY Last Admin: 04/13/17 16:55 Dose: 50 mls/hr Meperidine HCl (Demerol) 12.5 mg IVPUSH ONETIME PRN PRN Reason: Shivering Ondansetron HCl (Zofran) 4 mg IVPUSH Q8H PRN PRN Reason: Nausea - Plan Plan (Free Text/Narrative):: pt doing well NG working urine out put 100 cc an hour \wound clen K is low ass improved diuresis and will give IV potassium
[2017-04-14] MEDS ORDERED: Lidocaine 2% Viscous Solution 15 ML Cup PO PRN (10:23)
[2017-04-14] MEDS: Potassium Chloride 10 MEQ in Premix Bag 1 BAG IV SCH ×3 (11:01→20:03)
[2017-04-14] MEDS ORDERED: Bisacodyl 10 MG Supp RECTAL ONE (12:25)
[2017-04-14] MEDS: Lactated Ringers 1,000 ML IV SCH (14:01)
[2017-04-14] MEDS ORDERED: Acetaminophen 325 MG Tab PO PRN (17:42)
[2017-04-15] MEDS: HYDROmorphone 0.5 MG/0.5 ML SYRINGE IVPUSH PRN (07:25)
--- NOTE | 2017-04-15 08:53 | PCM.SURGPN ---
- General Info Date of Service: 04/15/17 POD#: 3 Functional Status: Reports: Pain Controlled - Review of Systems HEENT: Reports: No Symptoms Pulmonary: Reports: No Symptoms Cardiovascular: Reports: No Symptoms - Patient Data Vitals - Most Recent: Last Vital Signs Temp 97.9 F 04/15/17 07:58 Pulse 68 04/15/17 07:58 Resp 17 04/15/17 07:58 BP 125/96 H 04/15/17 07:58 Pulse Ox 93 L 04/15/17 07:58 Weight - Most Recent: 76.702 kg I&O - Last 24 Hours: Intake & Output 04/14/17 04/15/17 04/15/17 23:59 07:59 15:59 Intake Total 670 1200 Output Total 200 400 Balance 470 800 Med Orders - Current: Current Medications Acetaminophen (Tylenol) 650 mg PO Q6H PRN PRN Reason: Pain Benzocaine/Menthol (Cepacol Sore Throat) 1 lozenge MUCMEM Q2HR PRN PRN Reason: Sore Throat Last Admin: 04/14/17 14:06 Dose: 1 lozenge Hydromorphone HCl (Dilaudid) 0.5 mg IVPUSH Q1H PRN PRN Reason: Pain Last Admin: 04/15/17 07:25 Dose: 0.5 mg Lidocaine HCl (Xylocaine 2% Viscous) 15 ml PO TID PRN PRN Reason: Sore Throat Meperidine HCl (Demerol) 12.5 mg IVPUSH ONETIME PRN PRN Reason: Shivering Ondansetron HCl (Zofran) 4 mg IVPUSH Q8H PRN PRN Reason: Nausea Discontinued Medications Bisacodyl (Dulcolax) 10 mg RECTAL ONETIME ONE Stop: 04/14/17 12:26 Last Admin: 04/14/17 16:17 Dose: 10 mg Bupivacaine HCl (Marcaine 0.25%) Confirm Administered Dose 30 ml .ROUTE .STK- MED ONE Stop: 04/13/17 01:18 Last Admin: 04/13/17 02:18 Dose: 3 ml Cefazolin Sodium (Ancef) Confirm Administered Dose 2 gm .ROUTE .STK-MED ONE Stop: 04/13/17 01:35 Dexamethasone (Dexamethasone) Confirm Administered Dose 20 mg .ROUTE .STK-MED ONE Stop: 04/13/17 03:13 Diphenhydramine HCl (Benadryl) 25 mg IVPUSH Q6H PRN PRN Reason: Pruritis Ephedrine Sulfate (Ephedrine Sulfate) 5 mg IVPUSH ASDIRECTED PRN PRN Reason: Hypotension Fentanyl (Sublimaze) Confirm Administered Dose 250 mcg .ROUTE .STK-MED ONE Stop: 04/13/17 01:36 Fentanyl (Sublimaze) 50 mcg IVPUSH Q5M PRN PRN Reason: Pain Last Admin: 04/13/17 04:15 Dose: 50 mcg Glycopyrrolate () Confirm Administered Dose 1 mg .ROUTE .STK-MED ONE Stop: 04/13/17 03:13 Haloperidol Lactate (Haldol) 1 mg IVPUSH ONETIME ONE Stop: 04/13/17 02:34 Last Admin: 04/13/17 05:41 Dose: Not Given Hydromorphone HCl (Dilaudid) 1 mg IVPUSH ONETIME ONE Stop: 04/12/17 22:46 Hydromorphone HCl (Dilaudid) 1 mg IVPUSH ONETIME ONE Stop: 04/12/17 22:59 Last Admin: 04/12/17 23:03 Dose: 1 mg Hydromorphone HCl (Dilaudid) 0.5 mg IVPUSH ONETIME ONE Stop: 04/13/17 00:27 Last Admin: 04/13/17 00:45 Dose: 0.5 mg Hydromorphone HCl (Dilaudid) Confirm Administered Dose 1 mg .ROUTE .STK-MED ONE Stop: 04/13/17 02:41 Hydromorphone HCl (Dilaudid) 0.5 mg IV ASDIRECTED PRN PRN Reason: Severe Pain Last Admin: 04/13/17 05:12 Dose: 0.5 mg Sodium Chloride (Normal Saline) 1,000 mls @ 200 mls/hr IV ASDIRECTED [facility] Last Admin: 04/12/17 22:28 Dose: 200 mls/hr Lactated Ringer's (Ringers, Lactated) Confirm Administered Dose 1,000 mls @ as directed .ROUTE .STK-MED ONE Stop: 04/13/17 01:35 Lidocaine HCl (Xylocaine-Mpf 1%) Confirm Administered Dose 4 mls @ as directed .ROUTE .STK-MED ONE Stop: 04/13/17 01:36 Lactated Ringer's (Ringers, Lactated) Confirm Administered Dose 1,000 mls @ as directed .ROUTE .STK-MED ONE Stop: 04/13/17 03:13 Lactated Ringer's (Ringers, Lactated) 1,000 mls @ 125 mls/hr IV ASDIRECTED [facility] Last Admin: 04/13/17 05:13 Dose: 125 mls/hr Lactated Ringer's (Ringers, Lactated) 1,000 mls @ 70 mls/hr IV ASDIRECTED [facility] Last Infusion: 04/13/17 16:44 Dose: 50 mls/hr Lactated Ringer's (Ringers, Lactated) 1,000 mls @ 50 mls/hr IV ASDIRECTED [facility] Last Admin: 04/14/17 14:01 Dose: 50 mls/hr Potassium Chloride 10 meq/ (Premix) 100 mls @ 100 mls/hr IV TID WALLY Stop: 04/14/17 21:59 Last Admin: 04/14/17 20:03 Dose: 100 mls/hr Metoclopramide HCl (Reglan) 10 mg IVPUSH ONETIME ONE Stop: 04/12/17 22:46 Last Admin: 04/12/17 23:03 Dose: 10 mg Midazolam HCl (Versed 1 Mg/Ml) Confirm Administered Dose 2 mg .ROUTE .STK-MED ONE Stop: 04/13/17 01:36 Neostigmine Methylsulfate (Neostigmine) Confirm Administered Dose 5 mg .ROUTE .STK-MED ONE Stop: 04/13/17 03:13 Ondansetron HCl (Zofran) Confirm Administered Dose 4 mg .ROUTE .STK-MED ONE Stop: 04/13/17 01:35 Pneumococcal Polyvalent Vaccine (Pneumovax 23) 0.5 ml IM .ONCE ONE Stop: 04/13/17 05:22 Propofol (Diprivan 20 Ml) Confirm Administered Dose 400 mg .ROUTE .STK-MED ONE Stop: 04/13/17 01:36 Rocuronium [place] (Zemuron) Confirm Administered Dose 50 mg .ROUTE .STK-MED ONE Stop: 04/13/17 01:35 Succinylcholine Chloride (Succinylcholine In Ns Pf) Confirm Administered Dose 100 mg .ROUTE .STK-MED ONE Stop: 04/13/17 01:35 - Exam Wound/Incisions: Healing Well Lungs: Clear to Auscultation, Normal Respiratory Effort Cardiovascular: Regular Rate, Regular Rhythm GI/Abdominal Exam: Distended, Tender - Problem List Review Problem List Initiated/Reviewed/Updated: Yes - My Orders Last 24 Hours: Active Orders 24 hr Category Date Time Status Patient Status [ADT] Routine ADT 04/14/17 17:39 Active Shower [May Shower] [RC] ASDIRECTED Care 04/14/17 10:24 Active Clear Liquid Diet [DIET] Diet 04/14/17 Dinner Active Acetaminophen [Tylenol] Med 04/14/17 17:42 Active 650 mg PO Q6H PRN Lidocaine 2% [Xylocaine 2% Viscous] Med 04/14/17 10:23 Active 15 ml PO TID PRN Remove Drain [Drain Removal] [OM.PC] Routine Oth 04/14/17 14:43 Ordered Medication Orders Acetaminophen (Tylenol) 650 mg PO Q6H PRN PRN Reason: Pain Benzocaine/Menthol (Cepacol Sore Throat) 1 lozenge MUCMEM Q2HR PRN PRN Reason: Sore Throat Last Admin: 04/14/17 14:06 Dose: 1 lozenge Admin: 04/14/17 07:47 Dose: 1 lozenge Admin: 04/14/17 04:23 Dose: 1 lozenge Admin: 04/14/17 01:47 Dose: 1 lozenge Admin: 04/13/17 22:26 Dose: 1 lozenge Admin: 04/13/17 19:38 Dose: 1 lozenge Admin: 04/13/17 16:54 Dose: 1 lozenge Hydromorphone HCl (Dilaudid) 0.5 mg IVPUSH Q1H PRN PRN Reason: Pain Last Admin: 04/15/17 07:25 Dose: 0.5 mg Admin: 04/14/17 07:47 Dose: 0.5 mg Admin: 04/14/17 04:23 Dose: 0.5 mg Admin: 04/13/17 20:39 Dose: 0.5 mg Admin: 04/13/17 16:14 Dose: 0.5 mg Admin: 04/13/17 09:47 Dose: 0.5 mg Lidocaine HCl (Xylocaine 2% Viscous) 15 ml PO TID PRN PRN Reason: Sore Throat Meperidine HCl (Demerol) 12.5 mg IVPUSH ONETIME PRN PRN Reason: Shivering Ondansetron HCl (Zofran) 4 mg IVPUSH Q8H PRN PRN Reason: Nausea - Plan Plan (Free Text/Narrative):: pt doing well s/p surgery for SBO having some flatus and tolerating clear liquis garcia is out and urinating ambulating witout problem ass improved jmb
[2017-04-15] MEDS ORDERED: Acetaminophen/HYDROcodone 325-5 MG Tab PO PRN (09:51)
[2017-04-15] MEDS: Potassium Chloride 10 MEQ Tab.ER PO SCH ×2 (12:13→21:20)
--- NOTE | 2017-04-16 08:56 | PCM.SURGPN ---
- Patient Data Vitals - Most Recent: Last Vital Signs Temp 98.8 F 04/16/17 04:20 Pulse 72 04/16/17 04:20 Resp 15 04/16/17 04:20 BP 103/63 04/16/17 04:20 Pulse Ox 94 L 04/16/17 04:20 Weight - Most Recent: 77.519 kg I&O - Last 24 Hours: Intake & Output 04/15/17 04/16/17 04/16/17 23:59 07:59 15:59 Intake Total 1820 100 Output Total 1550 850 Balance 270 -750 Lab Results Last 24 Hrs: Laboratory Results - last 24 hr 04/15/17 04/16/17 Range/Units 09:55 06:46 Sodium 139 142 (136-145) mEq/L Potassium 3.2 L 3.6 (3.5-5.1) mEq/L Chloride 103 107 (98-107) mEq/L Carbon Dioxide 28 30 (21-32) mEq/L Anion Gap 11.2 8.6 (5-15) BUN 7 (7-18) mg/dL Creatinine 0.6 (0.55-1.02) mg/dL Est Cr Clr Drug Dosing 80.72 mL/min Estimated GFR (MDRD) > 60 (>60) mL/min BUN/Creatinine Ratio 11.7 L (14-18) Glucose 101 (80-115) mg/dL Calcium 8.5 (8.5-10.1) mg/dL Med Orders - Current: Current Medications Acetaminophen (Tylenol) 650 mg PO Q6H PRN PRN Reason: Pain Hydrocodone Bitart/Acetaminophen ([place] 325-5 Mg) 1 tab PO QID PRN PRN Reason: Pain Last Admin: 04/15/17 21:20 Dose: 1 tab Benzocaine/Menthol (Cepacol Sore Throat) 1 lozenge MUCMEM Q2HR PRN PRN Reason: Sore Throat Last Admin: 04/14/17 14:06 Dose: 1 lozenge Hydromorphone HCl (Dilaudid) 0.5 mg IVPUSH Q1H PRN PRN Reason: Pain Last Admin: 04/15/17 07:25 Dose: 0.5 mg Lidocaine HCl (Xylocaine 2% Viscous) 15 ml PO TID PRN PRN Reason: Sore Throat Ondansetron HCl (Zofran) 4 mg IVPUSH Q8H PRN PRN Reason: Nausea Potassium Chloride (Klor-Con 10) 10 meq PO BID WALLY Last Admin: 04/15/17 21:20 Dose: 10 meq Discontinued Medications Bisacodyl (Dulcolax) 10 mg RECTAL ONETIME ONE Stop: 04/14/17 12:26 Last Admin: 04/14/17 16:17 Dose: 10 mg Bupivacaine HCl (Marcaine 0.25%) Confirm Administered Dose 30 ml .ROUTE .STK- MED ONE Stop: 04/13/17 01:18 Last Admin: 04/13/17 02:18 Dose: 3 ml Cefazolin Sodium (Ancef) Confirm Administered Dose 2 gm .ROUTE .STK-MED ONE Stop: 04/13/17 01:35 Dexamethasone (Dexamethasone) Confirm Administered Dose 20 mg .ROUTE .STK-MED ONE Stop: 04/13/17 03:13 Diphenhydramine HCl (Benadryl) 25 mg IVPUSH Q6H PRN PRN Reason: Pruritis Ephedrine Sulfate (Ephedrine Sulfate) 5 mg IVPUSH ASDIRECTED PRN PRN Reason: Hypotension Fentanyl (Sublimaze) Confirm Administered Dose 250 mcg .ROUTE .STK-MED ONE Stop: 04/13/17 01:36 Fentanyl (Sublimaze) 50 mcg IVPUSH Q5M PRN PRN Reason: Pain Last Admin: 04/13/17 04:15 Dose: 50 mcg Glycopyrrolate () Confirm Administered Dose 1 mg .ROUTE .STK-MED ONE Stop: 04/13/17 03:13 Haloperidol Lactate (Haldol) 1 mg IVPUSH ONETIME ONE Stop: 04/13/17 02:34 Last Admin: 04/13/17 05:41 Dose: Not Given Hydromorphone HCl (Dilaudid) 1 mg IVPUSH ONETIME ONE Stop: 04/12/17 22:46 Last Admin: 04/15/17 23:20 Dose: Not Given Hydromorphone HCl (Dilaudid) 1 mg IVPUSH ONETIME ONE Stop: 04/12/17 22:59 Last Admin: 04/12/17 23:03 Dose: 1 mg Hydromorphone HCl (Dilaudid) 0.5 mg IVPUSH ONETIME ONE Stop: 04/13/17 00:27 Last Admin: 04/13/17 00:45 Dose: 0.5 mg Hydromorphone HCl (Dilaudid) Confirm Administered Dose 1 mg .ROUTE .[facility]-MED ONE Stop: 04/13/17 02:41 Hydromorphone HCl (Dilaudid) 0.5 mg IV ASDIRECTED PRN PRN Reason: Severe Pain Last Admin: 04/13/17 05:12 Dose: 0.5 mg Sodium Chloride (Normal Saline) 1,000 mls @ 200 mls/hr IV ASDIRECTED [facility] Last Admin: 04/12/17 22:28 Dose: 200 mls/hr Lactated Ringer's (Ringers, Lactated) Confirm Administered Dose 1,000 mls @ as directed .ROUTE .[facility] ONE Stop: 04/13/17 01:35 Lidocaine HCl (Xylocaine-Mpf 1%) Confirm Administered Dose 4 mls @ as directed .ROUTE .[facility] ONE Stop: 04/13/17 01:36 Lactated Ringer's (Ringers, Lactated) Confirm Administered Dose 1,000 mls @ as directed .ROUTE .[facility] ONE Stop: 04/13/17 03:13 Lactated Ringer's (Ringers, Lactated) 1,000 mls @ 125 mls/hr IV ASDIRECTED [facility] Last Admin: 04/13/17 05:13 Dose: 125 mls/hr Lactated Ringer's (Ringers, Lactated) 1,000 mls @ 70 mls/hr IV ASDIRECTED [facility] Last Infusion: 04/13/17 16:44 Dose: 50 mls/hr Lactated Ringer's (Ringers, Lactated) 1,000 mls @ 50 mls/hr IV ASDIRECTED [facility] Last Admin: 04/14/17 14:01 Dose: 50 mls/hr Potassium Chloride 10 meq/ (Premix) 100 mls @ 100 mls/hr IV TID WALLY Stop: 04/14/17 21:59 Last Admin: 04/14/17 20:03 Dose: 100 mls/hr Meperidine HCl (Demerol) 12.5 mg IVPUSH ONETIME PRN PRN Reason: Shivering Metoclopramide HCl (Reglan) 10 mg IVPUSH ONETIME ONE Stop: 04/12/17 22:46 Last Admin: 04/12/17 23:03 Dose: 10 mg Midazolam HCl (Versed 1 Mg/Ml) Confirm Administered Dose 2 mg .ROUTE .STK-MED ONE Stop: 04/13/17 01:36 Neostigmine Methylsulfate (Neostigmine) Confirm Administered Dose 5 mg .ROUTE .STK-MED ONE Stop: 04/13/17 03:13 Ondansetron HCl (Zofran) Confirm Administered Dose 4 mg .ROUTE .STK-MED ONE Stop: 04/13/17 01:35 Pneumococcal Polyvalent Vaccine (Pneumovax 23) 0.5 ml IM .ONCE ONE Stop: 04/13/17 05:22 Propofol (Diprivan 20 Ml) Confirm Administered Dose 400 mg .ROUTE .STK-MED ONE Stop: 04/13/17 01:36 Rocuronium [place] (Zemuron) Confirm Administered Dose 50 mg .ROUTE .STK-MED ONE Stop: 04/13/17 01:35 Succinylcholine Chloride (Succinylcholine In Ns Pf) Confirm Administered Dose 100 mg .ROUTE .STK-MED ONE Stop: 04/13/17 01:35 - Problem List Review Problem List Initiated/Reviewed/Updated: Yes - My Orders Last 24 Hours: Active Orders 24 hr Category Date Time Status [place] Diet [DIET] Diet 04/15/17 Dinner Active Acetaminophen/HYDROcodone [[place] 325-5 MG] Med 04/15/17 09:51 Active 1 tab PO QID PRN Potassium Chloride [Klor-Con 10] Med 04/15/17 12:00 Active 10 meq PO BID Medication Orders Acetaminophen (Tylenol) 650 mg PO Q6H PRN PRN Reason: Pain Hydrocodone Bitart/Acetaminophen ([place] 325-5 Mg) 1 tab PO QID PRN PRN Reason: Pain Last Admin: 04/15/17 21:20 Dose: 1 tab Benzocaine/Menthol (Cepacol Sore Throat) 1 lozenge MUCMEM Q2HR PRN PRN Reason: Sore Throat Last Admin: 04/14/17 14:06 Dose: 1 lozenge Admin: 04/14/17 07:47 Dose: 1 lozenge Admin: 04/14/17 04:23 Dose: 1 lozenge Admin: 04/14/17 01:47 Dose: 1 lozenge Admin: 04/13/17 22:26 Dose: 1 lozenge Admin: 04/13/17 19:38 Dose: 1 lozenge Admin: 04/13/17 16:54 Dose: 1 lozenge Hydromorphone HCl (Dilaudid) 0.5 mg IVPUSH Q1H PRN PRN Reason: Pain Last Admin: 04/15/17 07:25 Dose: 0.5 mg Admin: 04/14/17 07:47 Dose: 0.5 mg Admin: 04/14/17 04:23 Dose: 0.5 mg Admin: 04/13/17 20:39 Dose: 0.5 mg Admin: 04/13/17 16:14 Dose: 0.5 mg Admin: 04/13/17 09:47 Dose: 0.5 mg Lidocaine HCl (Xylocaine 2% Viscous) 15 ml PO TID PRN PRN Reason: Sore Throat Ondansetron HCl (Zofran) 4 mg IVPUSH Q8H PRN PRN Reason: Nausea Potassium Chloride (Klor-Con 10) 10 meq PO BID [facility] Last Admin: 04/15/17 21:20 Dose: 10 meq Admin: 04/15/17 12:13 Dose: 10 meq - Plan Plan (Free Text/Narrative):: discharge dictated ALEX
[2017-04-16] MEDS: Potassium Chloride 10 MEQ Tab.ER PO SCH (09:18)
--- NOTE | 2017-04-17 10:18 | DISCH ---
ADMISSION DATE: 04/13/2017 DISCHARGE DATE: 04/16/2017 HISTORY: This is a 67-year-old who came into the emergency room with colicky lower abdominal pain. The pain which began the morning and worsened and was quite severe by the evening time, came into the emergency room where she was worked up with a CT scan without oral contrast showing a small bowel obstruction with likely a closed loop obstruction. PAST SURGICAL HISTORY: The patient's past surgical history is that of a hysterectomy in the past. MEDICATIONS: Her medications were only that of Lipitor and aspirin. PHYSICAL EXAMINATION: GENERAL: At the time of admission, revealed an alert cooperative female. She was in moderate distress. EYES: Unremarkable. NECK: Supple. LUNGS: Clear. HEART: Heart tones regular rate. ABDOMEN: Tenderness in the right lower quadrant and with distention. No surgical incisions noted. No ventral or inguinal hernias. LABORATORY DATA: Demonstrated white count of 12,000 and lytes were in order. HOSPITAL COURSE: The patient was judged to have a closed loop obstruction and was brought to the operating room immediately where laparoscopy was done showing compromised bowel and laparotomy was done where the bowel was de-rotated, and using Doppler, the marginal artery was proven to be opened. The bowel pinked up and the adhesions were lysed and the abdomen was then closed. Postop course was that of low potassium which went down to about 3.2. She was given potassium, came up to 3.6. Fluids were managed and NG tube placed. Following day, the NG tube was removed and the bowel activity slowly returned. She was passing gas and diet advanced as tolerated. Now, she is up and ambulating. Wound healing without problem. Having normal bowel movements. Eating well and not requiring pain medications. She had reached maximum hospital benefit and was discharged. She is discharged. FINAL DIAGNOSIS: Small bowel obstruction with rotation of the small bowel with closed loop obstruction status post laparotomy. DIET: She was discharged on a regular diet. DISCHARGE MEDICATIONS: Aspirin and Lipitor and Tylenol for pain. FOLLOW-UP: See me on Thursday. Diet as tolerated. No pushing, shoving or pulling or work. CONDITION ON DISCHARGE: Improved. ACTIVITY: MMODAL /[id number]
== END 2017-04-16 10:37 | disposition home or self-care (01) | DRG 223 ==
LOC: JD.ED 21:36 → JD.SDS 04-13 01:51 → JD.ICU 04-13 04:55 → JD.MS 04-14 18:56
PROVIDERS: ADMIT Surgery; ATTEND Surgery
PROC: 0DJD4ZZ Inspection of Lower Intestinal Tract, Percutaneous Endoscopic Approach (ICD-10-PCS; principal; 2017-04-13)
PROC: 0DNB0ZZ Release Ileum, Open Approach (ICD-10-PCS; 2017-04-13)
PROC: 0DNA0ZZ Release Jejunum, Open Approach (ICD-10-PCS; 2017-04-13)
DX: K56.50 Intestinal adhesions [bands], unspecified as to partial versus complete obstruction (principal); E78.00 Pure hypercholesterolemia, unspecified; E87.6 Hypokalemia; Z79.82 Long term (current) use of aspirin; Z79.899 Other long term (current) drug therapy
CPT/HCPCS: 36415; 71045; 71045-26; 74018; 74018-26; 74176; 74176-26; 80048; 80051; 80053; 81001; 82150; 83605; 85025; 86140; 93005; 96361; 96374; 96375; 96376; 99285; 99285-25; A9270-GY; J0330; J0690; J1100; J1170; J2250; J2405; J2704; J2710; J2765; J3010; J3480; J3490; J7040; J7120